=== PATIENT | female | born 1960 | race Caucasian/White ===

== ENCOUNTER 2018-05-15 13:01 | Emergency (ER) | payer MEDICARE ==
--- NOTE | 2018-05-15 13:13 | ER Report ---
History and Physical Time Seen By MD: 13:12 Hx. of Stated Complaint: TROUBLE BREATHING, PRESSURE IN CHEST HPI/ROS CHIEF COMPLAINT: Shortness of breath HISTORY OF PRESENT ILLNESS: 57-year-old female patient presents to emergency room with complaint of shortness of breath and chest pressure. Patient states this been going on for the last 2 days. Patient states she is currently in route traveling from [facility] to [place]. She states that she's noticed she has some swelling to her ankles over the last couple days. She states that yesterday she drove for couple hours and then felt unable to drive any further. She states that her friend has driven since then. She denies any nausea, vomiting or diarrhea. Patient states that any type of activity seems to make her more short of breath. She does have a history of heart disease and one to be evaluated for that. REVIEW OF SYSTEMS: Respiratory: As noted above Cardiovascular: As noted above Gastrointestinal: No vomiting, no abdominal pain. Musculoskeletal: No back pain. Allergies: Coded Allergies: lisinopril (Verified Allergy, Unknown, COUGH, 05/15/18) Home Meds Reported Medications [Jacqueline] No Conflict Check 05/15/18 Fluticasone Prop 50 Mcg Ns (FLONASE 50 MCG NS) 16 Gm [place].susp, 1 SPRAY NS BID, BOT 05/15/18 Montelukast Sodium (SINGULAIR) 10 Mg Tablet, 1 TAB PO QDAY, TAB 05/15/18 Aspirin (ASPIR 81) 81 Mg Tablet.dr, 81 MG PO QDAY, TAB 05/15/18 Gabapentin (GABAPENTIN) 300 Mg Capsule, 300 MG PO TID, CAPSULE 05/15/18 Fluoxetine Hcl (PROZAC) 20 Mg Capsule, 20 MG PO QDAY, CAPSULE 05/15/18 Clopidogrel Bisulfate (PLAVIX) 75 Mg Tablet, 1 TAB PO QDAY, TAB 05/15/18 Pravastatin Sodium (PRAVACHOL) 20 Mg Tablet, 40 MG PO QDAY, TAB 05/15/18 Metoprolol Succinate (METOPROLOL SUCCINATE) 25 Mg Tab.er.24h, 1 TAB PO QDAY, TAB 05/15/18 Past Medical/Surgical History Patient has a past medical history of fibromyalgia, TIA, MA, hypertension, home oxygen, pneumonia, COPD. Patient has surgical history of two-vessel CABG, 13-14 coronary stents. Reviewed Nurses Notes: Yes Constitutional Vital Sign - Last 24 Hours 05/15/18 05/15/18 05/15/18 05/15/18 13:01 13:06 13:06 13:07 Temp 98.2 Pulse ??? 94 85 Resp 22 B/P (MAP) 188/99 188/99 (128) Pulse Ox 63 62 O2 Delivery Room Air 05/15/18 05/15/18 05/15/18 05/15/18 13:10 13:11 13:15 13:16 Pulse 82 78 B/P (MAP) 170/99 (122) 177/101 (126) Pulse Ox 96 98 05/15/18 05/15/18 05/15/18 05/15/18 13:16 13:21 13:26 13:30 Pulse 82 ??? B/P (MAP) 153/89 (110) Pulse Ox 97 97 O2 Flow Rate 4.0 05/15/18 05/15/18 05/15/18 05/15/18 13:31 13:36 13:41 13:46 Pulse 78 78 75 ??? Resp 10 19 21 Pulse Ox 96 97 96 05/15/18 05/15/18 05/15/18 05/15/18 13:51 13:56 14:00 14:01 Pulse ??? 74 73 Resp 16 14 B/P (MAP) 149/77 (101) 158/86 (110) Pulse Ox 95 97 05/15/18 05/15/18 05/15/18 05/15/18 14:06 14:11 14:15 14:16 Pulse 75 71 73 Resp 29 12 17 B/P (MAP) 162/86 (111) Pulse Ox 94 95 95 05/15/18 05/15/18 05/15/18 05/15/18 14:21 14:26 14:30 14:31 Pulse 68 73 72 Resp 13 20 21 B/P (MAP) 161/90 (113) Pulse Ox 97 96 97 05/15/18 05/15/18 05/15/18 05/15/18 14:36 14:45 14:51 15:00 Pulse 70 ??? Resp 14 B/P (MAP) 178/89 (118) 182/92 (122) Pulse Ox 97 05/15/18 05/15/18 05/15/18 05/15/18 15:00 15:00 15:06 15:15 Pulse 70 71 Resp 17 17 B/P (MAP) 172/92 (118) Pulse Ox 94 100 O2 Delivery Nasal Cannula O2 Flow Rate 3.0 05/15/18 05/15/18 05/15/18 05/15/18 15:21 15:30 15:36 15:45 Pulse 76 75 Resp 20 21 B/P (MAP) 168/90 (116) 159/83 (108) Pulse Ox 98 97 05/15/18 05/15/18 05/15/18 15:51 16:00 16:06 Pulse 77 71 Resp 22 20 B/P (MAP) 170/92 (118) Pulse Ox 98 97 Physical Exam General Appearance: The patient is alert, has no immediate need for airway protection and no current signs of toxicity. Respiratory: Chest is non tender, lungs are clear to auscultation. Cardiac: regular rate and rhythm Gastrointestinal: Abdomen is soft and non tender, no masses, bowel sounds normal. Musculoskeletal: Neck: Neck is supple and non tender. Extremities have full range of motion and are non tender. Skin: No rashes or lesions. DIFFERENTIAL DIAGNOSIS: After history and physical exam differential diagnosis was considered for shortness of breath including but not limited to pulmonary infectious process, COPD, asthma, pulmonary embolus and congestive heart failure. Medical Decision Making Data Points Result Diagram: 05/15/18 1310 05/15/18 1310 Laboratory Hematology Test 05/15/18 13:10 05/15/18 14:54 Red Blood Count 4.31 M/uL (4.17-5.56) Mean Corpuscular Volume 88.5 fL (80.0-96.0) Mean Corpuscular Hemoglobin 29.7 pg (26.0-33.0) Mean Corpuscular Hemoglobin Concent 33.6 g/dL (32.0-36.0) Red Cell Distribution Width 13.6 % (11.5-14.5) Mean Platelet Volume 7.9 fL (7.2-11.1) Neutrophils (%) (Auto) 65.7 % (39.4-72.5) Lymphocytes (%) (Auto) 24.8 % (17.6-49.6) Monocytes (%) (Auto) 7.8 % (4.1-12.4) Eosinophils (%) (Auto) 1.1 % (0.4-6.7) Basophils (%) (Auto) 0.6 % (0.3-1.4) Nucleated RBC Relative Count (auto) 0.0 /100WBC Neutrophils # (Auto) 5.1 K/uL (2.0-7.4) Lymphocytes # (Auto) 1.9 K/uL (1.3-3.6) Monocytes # (Auto) 0.6 K/uL (0.3-1.0) Eosinophils # (Auto) 0.1 K/uL (0.0-0.5) Basophils # (Auto) 0.0 K/uL (0.0-0.1) Nucleated RBC Absolute Count (auto) 0.00 K/uL Peripheral Blood Smear No Y/N D-Dimer Quantitative (PE/DVT) 0.35 ug/ml (0-0.50) Sodium Level 140 mmol/L (137-145) Potassium Level 3.4 mmol/L (3.5-5.0) Chloride Level 99 mmol/L (98-107) Carbon Dioxide Level 30 mmol/L (22-31) Blood Urea Nitrogen 15 mg/dl (7-18) Creatinine 0.60 mg/dl (0.52-1.04) Glomerular Filtration Rate Calc > 60.0 Random Glucose 104 mg/dl (75-110) Calcium Level 9.2 mg/dl (8.4-10.2) Total Bilirubin 0.2 mg/dl (0.2-1.3) Aspartate Amino Transf (AST/SGOT) 28 U/L (0-35) Alanine Aminotransferase (ALT/SGPT) 33 U/L (0-56) Alkaline Phosphatase 67 U/L (0-126) Troponin I < 0.012 ng/ml B-Type Natriuretic Peptide 297 pg/ml (0-100) Total Protein 8.2 g/dl (6.3-8.2) Albumin 4.1 g/dl (3.5-5.0) Urine Color Yellow Urine Clarity Clear Urine pH 6.0 pH (4.8-9.5) Urine Specific [place] 1.010 Urine Protein Negative mg/dL (NEGATIVE) Urine Glucose (UA) Negative mg/dL (NEGATIVE) Urine Ketones Negative mg/dL (NEGATIVE) Urine Blood Negative (NEGATIVE) Urine Nitrite Negative (NEGATIVE) Urine Bilirubin Negative (NEGATIVE) Urine Urobilinogen Negative mg/dL (0.2-1.9) Urine Leukocyte Esterase Small (NEGATIVE) Urine RBC 2 /HPF (0-2/HPF) Urine WBC 3 /HPF (0-5/HPF) Urine Squamous Epithelial Cells Many /LPF (</=FEW) Urine Bacteria Negative /HPF (NONE-FEW) Urine Mucus None /HPF (NONE-FEW) Chemistry Test 05/15/18 13:10 05/15/18 14:54 White Blood Count 7.8 k/uL (4.5-11.0) Red Blood Count 4.31 M/uL (4.17-5.56) Hemoglobin 12.8 g/dL (12.0-16.0) Hematocrit 38.1 % (34.0-47.0) Mean Corpuscular Volume 88.5 fL (80.0-96.0) Mean Corpuscular Hemoglobin 29.7 pg (26.0-33.0) Mean Corpuscular Hemoglobin Concent 33.6 g/dL (32.0-36.0) Red Cell Distribution Width 13.6 % (11.5-14.5) Platelet Count 257 K/uL (150-450) Mean Platelet Volume 7.9 fL (7.2-11.1) Neutrophils (%) (Auto) 65.7 % (39.4-72.5) Lymphocytes (%) (Auto) 24.8 % (17.6-49.6) Monocytes (%) (Auto) 7.8 % (4.1-12.4) Eosinophils (%) (Auto) 1.1 % (0.4-6.7) Basophils (%) (Auto) 0.6 % (0.3-1.4) Nucleated RBC Relative Count (auto) 0.0 /100WBC Neutrophils # (Auto) 5.1 K/uL (2.0-7.4) Lymphocytes # (Auto) 1.9 K/uL (1.3-3.6) Monocytes # (Auto) 0.6 K/uL (0.3-1.0) Eosinophils # (Auto) 0.1 K/uL (0.0-0.5) Basophils # (Auto) 0.0 K/uL (0.0-0.1) Nucleated RBC Absolute Count (auto) 0.00 K/uL Peripheral Blood Smear No Y/N D-Dimer Quantitative (PE/DVT) 0.35 ug/ml (0-0.50) Glomerular Filtration Rate Calc > 60.0 Calcium Level 9.2 mg/dl (8.4-10.2) Total Bilirubin 0.2 mg/dl (0.2-1.3) Aspartate Amino Transf (AST/SGOT) 28 U/L (0-35) Alanine Aminotransferase (ALT/SGPT) 33 U/L (0-56) Alkaline Phosphatase 67 U/L (0-126) Troponin I < 0.012 ng/ml B-Type Natriuretic Peptide 297 pg/ml (0-100) Total Protein 8.2 g/dl (6.3-8.2) Albumin 4.1 g/dl (3.5-5.0) Urine Color Yellow Urine Clarity Clear Urine pH 6.0 pH (4.8-9.5) Urine Specific [place] 1.010 Urine Protein Negative mg/dL (NEGATIVE) Urine Glucose (UA) Negative mg/dL (NEGATIVE) Urine Ketones Negative mg/dL (NEGATIVE) Urine Blood Negative (NEGATIVE) Urine Nitrite Negative (NEGATIVE) Urine Bilirubin Negative (NEGATIVE) Urine Urobilinogen Negative mg/dL (0.2-1.9) Urine Leukocyte Esterase Small (NEGATIVE) Urine RBC 2 /HPF (0-2/HPF) Urine WBC 3 /HPF (0-5/HPF) Urine Squamous Epithelial Cells Many /LPF (</=FEW) Urine Bacteria Negative /HPF (NONE-FEW) Urine Mucus None /HPF (NONE-FEW) Coagulation Test 05/15/18 13:10 D-Dimer Quantitative (PE/DVT) 0.35 ug/ml Urinalysis Test 05/15/18 14:54 Urine Color Yellow Urine Clarity Clear Urine pH 6.0 pH (4.8-9.5) Urine Specific [place] 1.010 Urine Protein Negative mg/dL (NEGATIVE) Urine Glucose (UA) Negative mg/dL (NEGATIVE) Urine Ketones Negative mg/dL (NEGATIVE) Urine Blood Negative (NEGATIVE) Urine Nitrite Negative (NEGATIVE) Urine Bilirubin Negative (NEGATIVE) Urine Urobilinogen Negative mg/dL (0.2-1.9) Urine Leukocyte Esterase Small (NEGATIVE) Urine RBC 2 /HPF (0-2/HPF) Urine WBC 3 /HPF (0-5/HPF) Urine Squamous Epithelial Cells Many /LPF (</=FEW) Urine Bacteria Negative /HPF (NONE-FEW) Urine Mucus None /HPF (NONE-FEW) EKG/Imaging Imaging 2 VIEWS CHEST INDICATION: Respiratory distress. COMPARISON: None available FINDINGS: Cardiomediastinal silhouette and pulmonary vessels within normal limits. Coronary artery stents. Sternotomy. There is no focal infiltrate or lobar consolidation. There is no pneumothorax or pleural effusion. No nodule. Mild scarring in the left lower lobe. Upper abdomen is unremarkable. No acute bony abnormality. IMPRESSION: 1. No acute cardiopulmonary process. Report Dictated By: Kapil Flores at 05/15/2018 2:04 PM Report E-Signed By: Kapil Flores at 05/15/2018 2:07 PM ED Course/Re-evaluation ED Course Patient was admitted to examine, history and physical were obtained. Differential diagnoses were considered. On examination lungs were clear, heart was regular, abdomen soft nontender. An EKG was done which showed a normal sinus rhythm, a CBC, CMP, troponin, BNP, chest x-ray were done. Labs were unrem arkable, patient did have a slightly elevated BNP of 297. Troponin was negative, chest x-ray showed no acute cardiopulmonary processes. I discussed findings with patient. I believe that we will go ahead and send patient home. I did not think we need to repeat a troponin as she had a undetectable troponin and have been having symptoms for 48 hours. I would like the patient have home oxygen. I believe that she does need to get to a lower elevation. I think that would help her considerably. I discussed this with the patient and she verbalized understanding and agreement. I would like the patient follow-up with her primary care provider when she returns home to [place]. Decision to Disposition Date: May 15, 2018 Decision to Disposition Time: 14:58 Depart Departure Latest Vital Signs Vital Signs Date Time Temp Pulse Resp B/P (MAP) Pulse Ox O2 Delivery O2 Flow Rate FiO2 05/15/18 16:06 71 20 97 05/15/18 16:00 170/92 (118) 05/15/18 15:00 Nasal Cannula 3.0 05/15/18 13:06 98.2 Impression: Primary Impression: High altitude dyspnea Condition: Improved Disposition: HOME OR SELF-CARE Departure Forms: ER Transition Record, Home Oxygen, Nebulizer RX, Home Oxygen Company Chosen by Patient: [employer] Medical Equipment-Oxygen: Portable Oxygen Gas Reason for Use/Diagnosis: High altitude dyspnea Start Date of the Order: May 15, 2018 Dosage or Concentration (if applicable) - LPM: 2 Route of Administration (if applicable): Nasal Cannula Frequency of Use: Continuous Duration Home O2 Required: 1 Duration Units: Weeks Room Air Oxygen Saturation: 62 ER Prescribing Physician's Name: Brody Figueroa NPI Numbers for Local ER MDs: [id number] Medications Reconciliation, Patient Portal Information Patient Instructions: Dyspnea (ED) Additional Instructions: Wear oxygen all of the time. I anticipate that this will improve as you go to lower altitude. This is likely worsened because of your heart disease. Get plenty of rest. Continue with normal diet. Continue with normal medications. Follow up with your primary care provider when you return home. Return to an ER en route to home if you are having worsen symptoms. Problem Qualifiers Primary Impression: High altitude dyspnea Encounter type: initial encounter Qualified Codes: T70.29XA - Other effects of high altitude, initial encounter BRODY FIGUEROA May 15, 2018 13:13
[2018-05-15] MEDS ORDERED: METO25TA23 PO (13:18)
[2018-05-15] MEDS ORDERED: NS(*) 0.9% 500 ML BAG 500 ML IV ONE (13:27)
[2018-05-15] MEDS ORDERED: MONT10TA PO (13:33)
[2018-05-15] MEDS ORDERED: FLUT16SP19 NS (13:33)
[2018-05-15] MEDS ORDERED: ASPI-1471 PO (13:33)
[2018-05-15] MEDS ORDERED: FLUO-202 PO (13:33)
[2018-05-15] MEDS ORDERED: CLOP75TA43 PO (13:33)
[2018-05-15] MEDS ORDERED: [UNRECOGNIZED DRUG - OTHER] (13:33)
[2018-05-15] MEDS ORDERED: GABA-549 PO (13:33)
[2018-05-15] MEDS ORDERED: PRAV20TA65 PO (13:33)
[2018-05-15 13:39] LABS: PLATELET COUNT, AUTOMATED 257 K/uL (150-450)
--- NOTE | 2018-05-15 14:11 | RADIOLOGY IMAGING REPORT ---
FACILITY: [facility] [place] PATIENT NAME: Concetta Cabral : 1960 MR: [id number] V: [id number] EXAM DATE: ORDERING PHYSICIAN: ADELA GONZALES TECHNOLOGIST: Location: [facility] [place] Patient: Concetta Cabral : 1960 Visit/Account:[id number] Date of Sevice: 05/15/2018 2 VIEWS CHEST INDICATION: Respiratory distress. COMPARISON: None available FINDINGS: Cardiomediastinal silhouette and pulmonary vessels within normal limits. Coronary artery stents. Ster notomy. There is no focal infiltrate or lobar consolidation. There is no pneumothorax or pleural effusion. No nodule. Mild scarring in the left lower lobe. Upper abdomen is unremarkable. No acute bony abnormality. IMPRESSION: 1. No acute cardiopulmonary process. Report Dictated By: Kapil Flores at 05/15/2018 2:04 PM Report E-Signed By: Kapil Flores at 05/15/2018 2:07 PM WSN:[id number]
[2018-05-15] MEDS ORDERED: ALBUTEROL/IPRATROPIUM 3 ML NEB NEB ONE (14:30)
[2018-05-15 16:00] VITALS: BP 170/92
--- NOTE | 2018-05-15 16:10 | EKG ---
FACILITY: [facility] PATIENT NAME: DAVID CAMARGO : [id number] MR: [id number] V: [id number] EXAM DATE: ORDERING PHYSICIAN: ADELA GONZALES TECHNOLOGIST: Test Reason : SOB Blood Pressure : / mmHG Vent. Rate : 079 BPM Atrial Rate : 079 BPM P-R Int : 146 ms QRS Dur : 090 ms QT Int : 384 ms P-R-T Axes : 065 040 054 degrees QTc Int : 440 ms Normal sinus rhythm Normal ECG No previous ECGs available Confirmed by ARRON VARGAS ([id number]) on 05/15/2018 7:54:46 PM Referred By: Confirmed By:ARRON VARGAS
== END 2018-05-15 16:31 | disposition home or self-care (01) ==
LOC: ER 13:05
DX: T70.29XA Other effects of high altitude, initial encounter (principal)
CPT/HCPCS: 71046; 81001; 83880; 84484; 85025; 85379; 93005; 94640; 96360; 99284; J7040; J7620; 82040; 82247; 82310; 82374; 82435; 82565; 82947; 84075; 84132; 84155; 84295; 84450; 84460; 84520